=== PATIENT | male | born 1990 | race African-American/Black ===

== ENCOUNTER 2018-09-25 21:21 | Emergency (ER) | payer SELFPAY ==
[2018-09-25 22:39] VITALS: BP 124/76
[2018-09-25] MEDS ORDERED: ONDANSETRON 4 MG TAB.RAPDIS PO ONE (23:14)
--- NOTE | 2018-09-25 23:15 | ER Document Report ---
ED Medical Screen (RME) - General Chief Complaint: Bloody Stools Stated Complaint: BLOOD IN STOOL Time Seen by Provider: 09/25/18 23:14 Notes: 27-year-old male, chief complaint of abdominal pain with nausea since yesterday, had a loose stool yesterday, then had another loose stool today which had bright red blood mixed in with clots. He still reports pain in his mid upper abdomen with nausea. Denies vomiting or fever. Only past medical history reported is appendectomy. TRAVEL OUTSIDE OF THE [place] IN LAST 30 DAYS: No - Related Data Allergies/Adverse Reactions: No Known Allergies Allergy (Unverified 09/25/18 21:23) Physical Exam - Vital signs Vitals: Temp Pulse Resp BP Pulse Ox 98.4 F 64 16 124/76 100 09/25/18 22:37 09/25/18 22:37 09/25/18 22:37 09/25/18 22:37 09/25/18 22:37 - Abdominal Tenderness: Tender - Complains of pain with palpation of the mid to upper abdomen generally, no guarding, lower abdomen seems benign. Exam limited by sitting position Course - Re-evaluation Re-evalutation: I have greeted and performed a rapid initial assessment of this patient. A comprehensive ED assessment and evaluation of the patient, analysis of test results and completion of the medical decision making process will be conducted by additional ED providers. - Vital Signs Vital signs: Temp Pulse Resp BP Pulse Ox 98.4 F 64 16 124/76 100 09/25/18 22:37 09/25/18 22:37 09/25/18 22:37 09/25/18 22:37 09/25/18 22:37
[2018-09-26 00:01] LABS: ABSOLUTE EOSINOPHILS # (AUTO) 0.2 10^3/uL (0.0-0.6); ABSOLUTE LYMPHOCYTES (AUTO) 1.9 10^3/uL (0.5-4.7); ABSOLUTE MONOCYTES (AUTO) 0.4 10^3/uL (0.1-1.4); BASOPHILS % (AUTO) 0.6 % (0-2); EOSINOPHILS % (AUTO) 2.9 % (0-6); HEMATOCRIT 40.6 % (37.9-51.0); HEMOGLOBIN 13.6 g/dL (13.5-17.0); LYMPHOCYTES % (AUTO) 33.6 % (13-45); MEAN CORPUSCULAR HGB CONC 33.6 g/dL (32.0-36.0); MEAN CORPUSCULAR VOLUME 83 fl (80-97); MONOCYTES % (AUTO) 7.9 % (3-13); PLATELET COUNT 224 10^3/uL (150-450); RED BLOOD COUNT 4.87 10^6/uL (4.35-5.55); TOTAL CELLS COUNTED % (AUTO) 100 %; WHITE BLOOD COUNT 5.5 10^3/uL (4.0-10.5)
[2018-09-26 00:25] LABS: ALANINE AMINOTRANSFERASE 22 U/L (21-72); ALBUMIN 4.6 g/dL (3.5-5.0); ALKALINE PHOSPHATASE 46 U/L (38-126); ANION GAP 9 (5-19); ASPARTATE AMINO TRANSFERASE 23 U/L (17-59); BILIRUBIN,DIRECT 0.3 mg/dL (0.0-0.4); BILIRUBIN,TOTAL 0.5 mg/dL (0.2-1.3); BLOOD UREA NITROGEN 12 mg/dL (7-20); CALCIUM 9.8 mg/dL (8.4-10.2); CARBON DIOXIDE 30 mmol/L (22-30); CHLORIDE 103 mmol/L (98-107); GLUCOSE 94 mg/dL (75-110); POTASSIUM 4.6 mmol/L (3.6-5.0); SODIUM 142.3 mmol/L (137-145); TOTAL PROTEIN 7.8 g/dL (6.3-8.2)
== END 2018-09-26 03:50 | disposition left against medical advice (07) ==
LOC: ER 21:21
DX: Z53.21 Procedure and treatment not carried out due to patient leaving prior to being seen by health care provider (principal); R19.5 Other fecal abnormalities; R19.7 Diarrhea, unspecified; R10.10 Upper abdominal pain, unspecified; R11.0 Nausea
CPT/HCPCS: 99281; 36415; 83690; 85025; 80053; S0119